=== PATIENT | female | born 1990 | race Caucasian/White ===

== ENCOUNTER 2017-02-06 21:07 | Observation (INO) | payer OTHER ==
[~2017-02-06] VITALS: Ht 165.1 cm; Wt 81.6 kg
[~2017-02-06 21:07] MED LIST: PREN1TAB19
== END 2017-02-06 22:45 | disposition home or self-care (01) ==
LOC: L&D 21:07
PROVIDERS: ADMIT Specialist; ATTEND Specialist
DX: O26.859 Spotting complicating pregnancy, unspecified trimester (principal); Z3A.00 Weeks of gestation of pregnancy not specified
CPT/HCPCS: 76815; 99281; G0378

== ENCOUNTER 2017-09-13 13:04 | Emergency (ER) | payer OTHER ==
[~2017-09-13] VITALS: Ht 165.1 cm; Wt 76.0 kg
[2017-09-13] MEDS ORDERED: KETOROLAC 60MG/2ML VIAL IM ONE (16:30)
[2017-09-13 17:15] LABS: CLARITY URINE CLOUDY (CLEAR); COLOR URINE YELLOW (YELLOW); KETONES URINE NEGATIVE (NEGATIVE); LEUKOCYTE ESTERASE URINE 2+ (NEGATIVE); NITRITE URINE POSITIVE (NEGATIVE); OCCULT BLOOD URINE TRACE (NEGATIVE); PROTEIN URINE NEGATIVE (NEGATIVE); SPECIFIC GRAVITY URINE 1.007 (1.005-1.030); UROBILINOGEN URINE 0.2 E.U./dL (0.2-1.0)
[2017-09-13 18:49] VITALS: BP 122/85
== END 2017-09-13 18:28 | disposition home or self-care (01) ==
LOC: ER 13:04
DX: N39.0 Urinary tract infection, site not specified (principal); M25.511 Pain in right shoulder; R20.0 Anesthesia of skin; M79.601 Pain in right arm
CPT/HCPCS: 81003; 81025; 87077; 87086; 87186; 96372; 99284; J1885

== ENCOUNTER 2018-03-26 15:26 | Emergency (ER) | payer OTHER ==
[~2018-03-26] VITALS: Ht 165.1 cm; Wt 68.4 kg
[2018-03-26 16:48] VITALS: BP 125/85
== END 2018-03-26 23:13 | disposition home or self-care (01) ==
LOC: ER 15:26
DX: Z04.41 Encounter for examination and observation following alleged adult rape (principal); M54.9 Dorsalgia, unspecified; F17.200 Nicotine dependence, unspecified, uncomplicated; Y08.89XA Assault by other specified means, initial encounter; Y93.89 Activity, other specified; Y92.89 Other specified places as the place of occurrence of the external cause; Y99.8 Other external cause status; Z88.0 Allergy status to penicillin
CPT/HCPCS: 99283

== ENCOUNTER 2018-07-27 17:32 | Emergency (ER) | payer OTHER ==
[~2018-07-27] VITALS: Ht 165.1 cm; Wt 66.0 kg
[2018-07-27 18:15] VITALS: BP 138/89
[2018-07-27] MEDS ORDERED: TETANUS, DIPHTHERIA, PERTUSSIS VAC/PF 0.5ML (>7YR OLD) IM ONE (18:30)
== END 2018-07-27 20:29 | disposition home or self-care (01) ==
LOC: ER 17:32
DX: S09.90XA Unspecified injury of head, initial encounter (principal); S91.332A Puncture wound without foreign body, left foot, initial encounter; M25.531 Pain in right wrist; F12.10 Cannabis abuse, uncomplicated; F17.210 Nicotine dependence, cigarettes, uncomplicated; Z87.828 Personal history of other (healed) physical injury and trauma; Z88.0 Allergy status to penicillin; W22.8XXA Striking against or struck by other objects, initial encounter; Y93.89 Activity, other specified; Y92.015 Private garage of single-family (private) house as the place of occurrence of the external cause
CPT/HCPCS: 73110; 81025; 90471; 90715; 99283

== ENCOUNTER 2018-09-06 14:00 | Emergency (ER) | payer OTHER ==
[~2018-09-06] VITALS: Ht 162.6 cm; Wt 63.0 kg
[2018-09-06] MEDS ORDERED: SODIUM CHLORIDE 0.9% 1,000 ML IV ONE (14:35)
[2018-09-06] MEDS ORDERED: ONDANSETRON HCL 4MG/2ML INJ IV STA (14:35)
[2018-09-06] MEDS ORDERED: MORPHINE SULFATE 4 MG/ML CPJ (NOT FOR IM USE) IV STA (14:35)
[2018-09-06 15:14] LABS: CHLORIDE 106 mEq/L (98-107)
[2018-09-06 15:15] LABS: PROTHROMBIN TIME 10.7 sec (9.6-11.0)
[2018-09-06 15:18] LABS: ETHANOL BLOOD < 10 mg/dL
[2018-09-06 15:20] LABS: BASOPHILS % 0.2 % (0.0-2.0); EOSINOPHILS % 0.2 % (0.0-5.0); HCG SCREEN NEGATIVE; HEMATOCRIT. 41.8 % (36.0-48.0); HEMOGLOBIN. 14.1 g/dL (12.0-16.0); LYMPHOCYTES % 31.5 % (20.0-50.0); MEAN CORPUSCULAR VOLUME 79.8 fL (81.0-99.0); MEAN PLATELET VOLUME 8.4 fl (7.4-10.4); NEUTROPHILS % 62.1 % (40.0-76.0); PLATELET 218 x1000/uL (130-400); RED BLOOD CELL COUNT 5.23 mill/uL (4.2-5.4); RED CELL DISTRIBUTION WIDTH 16.3 % (11.6-14.6)
[2018-09-06 16:21] LABS: CLARITY URINE CLEAR (CLEAR); COLOR URINE YELLOW (YELLOW); KETONES URINE NEGATIVE (NEGATIVE); LEUKOCYTE ESTERASE URINE 1+ (NEGATIVE); NITRITE URINE NEGATIVE (NEGATIVE); OCCULT BLOOD URINE NEGATIVE (NEGATIVE); PH URINE 6.5 (4.5-8.0); PROTEIN URINE NEGATIVE (NEGATIVE); UROBILINOGEN URINE 0.2 E.U./dL (0.2-1.0)
[2018-09-06] MEDS ORDERED: MORPHINE SULFATE 4 MG/ML CPJ (NOT FOR IM USE) IV ONE (16:30)
[2018-09-06] MEDS ORDERED: KETOROLAC 30MG/ML VIAL IV ONE (16:30)
[2018-09-06 16:45] LABS: *BARBITURATES SCREEN URINE NEGATIVE (NEGATIVE); *BENZODIAZEPINES SCREEN URINE NEGATIVE (NEGATIVE); *COCAINE SCREEN URINE NEGATIVE (NEGATIVE); METHADONE URINE SCREEN NEGATIVE (NEGATIVE); PHENCYCLIDINE URINE SCREEN NEGATIVE (NEGATIVE)
[2018-09-06 16:46] LABS: CANNABINOID URINE SCREEN NEGATIVE (NEGATIVE)
[2018-09-06 16:48] LABS: *AMPHETAMINES SCREEN URINE PRESUMTIVE POSITIVE (NEGATIVE)
[2018-09-06 16:49] LABS: OPIATES URINE SCREEN PRESUMTIVE POSITIVE (NEGATIVE)
[2018-09-06 18:14] VITALS: BP 120/83
== END 2018-09-06 18:40 | disposition home or self-care (01) ==
LOC: ER 14:00
DX: R51 Headache (principal); F19.10 Other psychoactive substance abuse, uncomplicated; F14.10 Cocaine abuse, uncomplicated; H53.8 Other visual disturbances; H92.01 Otalgia, right ear; R53.1 Weakness; E86.0 Dehydration; F17.290 Nicotine dependence, other tobacco product, uncomplicated; Z88.0 Allergy status to penicillin
CPT/HCPCS: 36415; 70450; 80053; 80305; 80320; 81003; 84703; 85025; 85610; 96361; 96374; 96375; 99284; J1885; J2270; J2405; J7030; Z7610; G0480

== ENCOUNTER 2018-09-11 02:21 | Emergency (ER) | payer OTHER ==
[~2018-09-11] VITALS: Ht 167.6 cm; Wt 77.0 kg
[2018-09-11 02:23] VITALS: BP 126/97
== END 2018-09-11 03:34 | disposition left against medical advice (07) ==
LOC: ER 02:21
DX: R10.9 Unspecified abdominal pain (principal); Z53.21 Procedure and treatment not carried out due to patient leaving prior to being seen by health care provider

== ENCOUNTER 2018-09-11 05:01 | Inpatient (IN) | payer OTHER ==
[~2018-09-11] VITALS: Ht 165.1 cm; Wt 79.8 kg
[2018-09-11] MEDS ORDERED: METOCLOPRAMIDE HCL 10MG/2ML VIAL IV STA (05:34)
[2018-09-11] MEDS ORDERED: FAMOTIDINE 20MG/2ML VIAL IV STA (05:34)
[2018-09-11] MEDS ORDERED: MORPHINE SULFATE 4 MG/ML CPJ (NOT FOR IM USE) IV STA (05:34)
[2018-09-11] MEDS ORDERED: SODIUM CHLORIDE 0.9% 1,000 ML IV ONE (05:34)
[2018-09-11 05:53] LABS: BASOPHILS % 0.2 % (0.0-2.0); EOSINOPHILS % 0.1 % (0.0-5.0); HEMATOCRIT. 41.1 % (36.0-48.0); HEMOGLOBIN. 13.9 g/dL (12.0-16.0); LYMPHOCYTES % 16.2 % (20.0-50.0); MEAN CORPUSCULAR HEMOGLOBIN 26.9 pg (28.0-32.0); MEAN CORPUSCULAR VOLUME 79.5 fL (81.0-99.0); MEAN PLATELET VOLUME 8.6 fl (7.4-10.4); MONOCYTES % 4.6 % (2.0-8.0); NEUTROPHILS % 78.9 % (40.0-76.0); PLATELET 199 x1000/uL (130-400); RED BLOOD CELL COUNT 5.18 mill/uL (4.2-5.4); RED CELL DISTRIBUTION WIDTH 16.2 % (11.6-14.6)
[2018-09-11 05:55] LABS: CHLORIDE 106 mEq/L (98-107)
[2018-09-11 06:22] LABS: CLARITY URINE CLEAR (CLEAR); COLOR URINE YELLOW (YELLOW); KETONES URINE NEGATIVE (NEGATIVE); LEUKOCYTE ESTERASE URINE NEGATIVE (NEGATIVE); NITRITE URINE NEGATIVE (NEGATIVE); OCCULT BLOOD URINE NEGATIVE (NEGATIVE); PH URINE 7.5 (4.5-8.0); PROTEIN URINE NEGATIVE (NEGATIVE); UROBILINOGEN URINE 0.2 E.U./dL (0.2-1.0)
[2018-09-11 07:00] LABS: *AMPHETAMINES SCREEN URINE NEGATIVE (NEGATIVE)
[2018-09-11 07:01] LABS: *BARBITURATES SCREEN URINE NEGATIVE (NEGATIVE); *BENZODIAZEPINES SCREEN URINE NEGATIVE (NEGATIVE); *COCAINE SCREEN URINE NEGATIVE (NEGATIVE); CANNABINOID URINE SCREEN NEGATIVE (NEGATIVE); OPIATES URINE SCREEN NEGATIVE (NEGATIVE); PHENCYCLIDINE URINE SCREEN NEGATIVE (NEGATIVE)
[2018-09-11 07:03] LABS: METHADONE URINE SCREEN NEGATIVE (NEGATIVE)
[2018-09-11] MEDS ORDERED: IOHEXOL-300 100 ML BOTTLE ONE (07:05)
[2018-09-11] MEDS ORDERED: LEVOFLOXACIN 500MG PREMIX 100 ML IV ONE (07:15)
[2018-09-11] MEDS ORDERED: PIPERACILLIN/TAZ 3.375G PREMIX 50 ML IV ONE (07:15)
[2018-09-11] MEDS ORDERED: METRONIDAZOLE 500 MG PREMIX 100 ML IV ONE (07:15)
[2018-09-11] MEDS ORDERED: SKIN ADHESIVE 0.7 GM EA TOP ONE (08:43)
[2018-09-11] MEDS ORDERED: BUPIVACAINE HCL 0.5% (5MG/ML) 50ML ONE (08:43)
[2018-09-11] MEDS ORDERED: LABETALOL 5MG/ML SYR 20 MG/4 ML SYRINGE IV PRN (10:45)
[2018-09-11] MEDS ORDERED: MEPERIDINE HCL/PF 25MG/ML CPJ IV PRN (10:45)
[2018-09-11] MEDS ORDERED: ONDANSETRON HCL 4MG/2ML INJ IV PRN (10:45)
[2018-09-11] MEDS ORDERED: MORPHINE SULFATE 4 MG/ML CPJ (NOT FOR IM USE) IV PRN (11:45)
[2018-09-11] MEDS ORDERED: HYDROCODONE/ACETAMINOPHEN 5/325MG TABLET PO PRN ×2 (11:45)
[2018-09-11] MEDS: HYDROMORPHONE HCL/PF 2MG/ML CPJ IV PRN ×2 (11:54→12:26)
[2018-09-11 12:00] VITALS: BP 153/99
[2018-09-11 13:10] VITALS: BP 153/99
[2018-09-11] MEDS: MORPHINE SULFATE 2 MG/ML CPJ (NOT FOR IM USE) IV PRN ×2 (14:54→20:28)
[2018-09-11] MEDS ORDERED: HYDRALAZINE HCL 50MG TABLET PO PRN (16:00)
[2018-09-11] MEDS: DEXT 5%/0.45% NACL KCL 20MEQ/L 1,000 ML IV SCH ×2 (17:08→22:32)
[2018-09-11 20:00] VITALS: BP 102/65
[2018-09-11] MEDS ORDERED: HYDRALAZINE HCL 50MG TABLET PO SCH (22:00)
[2018-09-12] VITALS: BP 104/65
[2018-09-12 04:00] VITALS: BP 102/60
[2018-09-12 08:00] VITALS: BP 98/64
[2018-09-12] MEDS: DEXT 5%/0.45% NACL KCL 20MEQ/L 1,000 ML IV SCH (08:55)
[2018-09-12 10:56] VITALS: BP 98/64
[2018-09-12 12:00] VITALS: BP_SYST 115; BP_SYST 117; BP_DIAS 79; BP_DIAS 82
== END 2018-09-12 12:30 | disposition home or self-care (01) | DRG 234 ==
LOC: ER 05:01 → 6EST 07:08 → EDBEDREQ 07:10 → EDBEDREQTM 07:10 → ENRESERV 07:21
PROVIDERS: ADMIT Internal Medicine; ATTEND Internal Medicine
PROC: 0DTJ4ZZ Resection of Appendix, Percutaneous Endoscopic Approach (ICD-10-PCS; principal; 2018-09-11)
DX: K35.80 Unspecified acute appendicitis (principal); E86.0 Dehydration; F15.10 Other stimulant abuse, uncomplicated; Z88.0 Allergy status to penicillin
CPT/HCPCS: 36415; 74177; 76705; 80305; 83605; 88304; 93005; 96374; 99285; J1170; J1956; J2270; J2405; J2543; J2765; J3490; J7030; Q9967

== ENCOUNTER 2018-09-16 20:17 | Emergency (ER) | payer OTHER ==
[~2018-09-16] VITALS: Ht 162.6 cm; Wt 68.0 kg
[2018-09-16] MEDS ORDERED: ONDANSETRON HCL 4MG/2ML INJ IV STA (22:17)
[2018-09-16] MEDS ORDERED: MAGNESIUM/ALUMINUM HYDROXIDE/SIMETHICONE 30ML UDC PO STA (22:17)
[2018-09-16] MEDS ORDERED: FAMOTIDINE 20MG/2ML VIAL IV STA (22:17)
[2018-09-16] MEDS ORDERED: SODIUM CHLORIDE 0.9% 1,000 ML IV ONE (22:17)
[2018-09-16] MEDS ORDERED: MORPHINE SULFATE 4 MG/ML CPJ (NOT FOR IM USE) IV STA (22:17)
[2018-09-16 23:03] LABS: BASOPHILS % 0.3 % (0.0-2.0); EOSINOPHILS % 0.7 % (0.0-5.0); HCG SCREEN NEGATIVE; HEMATOCRIT. 40.1 % (36.0-48.0); HEMOGLOBIN. 13.8 g/dL (12.0-16.0); LYMPHOCYTES % 38.6 % (20.0-50.0); MEAN CORPUSCULAR HEMOGLOBIN 27.5 pg (28.0-32.0); MEAN CORPUSCULAR VOLUME 79.8 fL (81.0-99.0); MEAN PLATELET VOLUME 8.2 fl (7.4-10.4); MONOCYTES % 7.7 % (2.0-8.0); NEUTROPHILS % 52.7 % (40.0-76.0); PLATELET 236 x1000/uL (130-400); RED BLOOD CELL COUNT 5.03 mill/uL (4.2-5.4); RED CELL DISTRIBUTION WIDTH 16.8 % (11.6-14.6)
[2018-09-16 23:05] LABS: CHLORIDE 108 mEq/L (98-107); INR 0.9; PROTHROMBIN TIME 9.5 sec (9.6-11.0)
[2018-09-17 00:08] LABS: CLARITY URINE CLEAR (CLEAR); COLOR URINE YELLOW (YELLOW); KETONES URINE NEGATIVE (NEGATIVE); LEUKOCYTE ESTERASE URINE NEGATIVE (NEGATIVE); NITRITE URINE NEGATIVE (NEGATIVE); OCCULT BLOOD URINE NEGATIVE (NEGATIVE); PROTEIN URINE NEGATIVE (NEGATIVE); SPECIFIC GRAVITY URINE 1.026 (1.005-1.030); UROBILINOGEN URINE 0.2 E.U./dL (0.2-1.0)
[2018-09-17 05:09] VITALS: BP 126/81
== END 2018-09-17 05:14 | disposition home or self-care (01) ==
LOC: ER 20:17
DX: R10.13 Epigastric pain (principal); Z88.0 Allergy status to penicillin; Z90.89 Acquired absence of other organs
CPT/HCPCS: 36415; 74176; 76705; 80053; 81003; 83690; 84703; 85025; 85610; 96374; 96375; 99284; J2270; J2405; J3490; J7030

== ENCOUNTER 2018-10-11 16:58 | Emergency (ER) | payer OTHER ==
[~2018-10-11] VITALS: Ht 165.1 cm; Wt 79.0 kg
[2018-10-11 17:14] VITALS: BP 123/79
== END 2018-10-12 00:05 | disposition left against medical advice (07) ==
LOC: ER 16:58
DX: Z53.21 Procedure and treatment not carried out due to patient leaving prior to being seen by health care provider (principal); Z88.0 Allergy status to penicillin

== ENCOUNTER 2019-04-03 03:19 | Emergency (ER) | payer OTHER ==
[~2019-04-03] VITALS: Ht 157.5 cm; Wt 64.0 kg
[2019-04-03 03:22] VITALS: BP 124/82
== END 2019-04-03 10:58 | disposition left against medical advice (07) ==
LOC: ER 03:19
DX: Z53.21 Procedure and treatment not carried out due to patient leaving prior to being seen by health care provider (principal)

== ENCOUNTER 2020-04-17 19:55 | Observation (INO) | payer MEDICAID, OTHER ==
[~2020-04-17] VITALS: Ht 165.1 cm; Wt 78.9 kg
== END 2020-04-17 23:35 | disposition home or self-care (01) ==
LOC: 8 EST LDRP 19:55
PROVIDERS: ADMIT Specialist; ATTEND Specialist
DX: O9A.213 Injury, poisoning and certain other consequences of external causes complicating pregnancy, third trimester (principal); O26.893 Other specified pregnancy related conditions, third trimester; R10.9 Unspecified abdominal pain; Z3A.36 36 weeks gestation of pregnancy; Y04.0XXA Assault by unarmed brawl or fight, initial encounter; Y93.89 Activity, other specified; Y92.89 Other specified places as the place of occurrence of the external cause
CPT/HCPCS: 59025; 76805; 76818; G0378; 99281